=== PATIENT | female | born 1995 | race African-American/Black ===

== ENCOUNTER 2016-07-04 11:17 | Emergency (ER) | payer OTHER ==
--- NOTE | 2016-07-04 11:30 | ED Physician Documentation ---
General Adult - HISTORIAN Historian: patient - HPI Chief Complaint: Female Urogenital Problems Further Comments: yes (Patient states who is , not sure when last mentrual period was. Did a prenancy test in April and was positive. Did see a obstrician 3-4 weeks ago. Was told EDC but does not remember the date. [id number] female. Has not started vitamins.) - ROS CONST: no problems - PAST HX Past History: none Other History: none Surgeries/Procedures: none Immunizations: influenza - SOCIAL HX Smoking History: non-smoker Alcohol Use: none Drug Use: none - FAMILY HX Family History: No - REVIEWED ASSESSMENTS Nursing Assessment Reviewed: Yes Vitals Reviewed: Yes General Adult Physical Exam - PHYSICAL EXAM GENERAL APPEARANCE: no distress NECK: normal inspection, thyroid normal RESPIRATORY: no resp distress, chest non-tender, breath sounds normal. No: wheezes, rales, rhonchi CVS: reg rate & rhythm, heart sounds normal, equal pulses, murmur (grade 1/6) ABDOMEN: soft, no organomegaly, normal bowel sounds, other (FHT not heard) BACK: normal inspection, no CVA tenderness SKIN: warm/dry, normal color EXTREMITIES: non-tender NEURO: mood/affect nml, cognition normal Discharge Clincal Impression: IUP (intrauterine ), incidental Additional Instructions: Start taking vitamins, Simalc, One A Day, Brain Strong or any other vitamins. Get established with an continuum of care manager that will be following you. Get your medical records from your previous physician. Condition: Stable Disposition: 01 HOME, SELF-CARE Decision to Admit: NO Date of Decison to Admit: 07/04/16 Decision Time: 11:52
[2016-07-04 12:03] VITALS: BP 143/76
== END 2016-07-04 11:55 | disposition home or self-care (01) ==
LOC: ED 11:17
DX: Z32.01 Encounter for pregnancy test, result positive (principal)
CPT/HCPCS: 81025; 99282